=== PATIENT | male | born 1950 | race Caucasian/White ===

== ENCOUNTER 2018-02-04 09:46 | Observation (INO) | payer SELFPAY ==
[2018-02-04] VITALS (14 sets, daily range): BP systolic 90–111; BP diastolic 50–84; PULSE 53–153; RESP 12–21; TEMP 36.6–37.1; O2SAT 96–97; BMI 25.9; BMI 26.0; BMI 26.1
--- NOTE | 2018-02-04 09:53 | NURSING ---
NO OLD EKGS
[2018-02-04] MEDS: 0.9% Normal Saline 1,000 ML 150 ML IV (09:57)
[2018-02-04] MEDS: Aspirin 81 MG TAB.CHEW 324 MG PO (09:58)
[2018-02-04] MEDS: dilTIAZem 25 MG/5 ML Vial 20 MG IV BOLUS (09:58)
[2018-02-04 09:59] LABS: Absolute Lymphocyte Count 2.82 X10^3/ul (0.83-4.51); Absolute Neutrophil Count 6.4 X10^3/uL (2.0-7.7); Basophil# 0.01 X10^3/uL; Basophil% 0.1 % (0-1); Eosinophil# 0.09 X10^3/uL; Eosinophils% 0.9 % (0-5); Hematocrit 49.3 % (40-54); Hemoglobin 16.4 g/dl (13.0-16.5); Lymphocyte # 2.82 X10^3/ul (4.0); Lymphocyte % 27.4 % (19-41); Mean Corp Hgb Conc 33.3 g/gl (32-36); Mean Corpuscular Hgb 28.8 pg (27.0-32.0); Mean Corpuscular Volume 86.6 fL (80-94); Mean Platelet Vol. 9.7 fl (6.2-12.0); Monocyte# 0.94 X10^3/uL; Monocyte% 9.1 % (0-10); Neutrophil # 6.41 X10^3/uL (2.7-7.7); Neutrophil % 62.4 % (47-70); Platelet Count 187 K/mm3 (150-450); RBC Distribution Width CV 13.9 % (11.6-14.6); RBC Distribution Width SD 43.8 fl (35.1-43.9); Red Blood Count 5.69 M/mm3 (4.6-6.2); White Blood Count 10.3 K/mm3 (4.4-11.0)
[2018-02-04 10:00] LABS: POSITIVE COUNT NO; POSITIVE DIFFERENTIAL NO; POSITIVE MORPHOLOGY NO
--- NOTE | 2018-02-04 10:03 | ED.DCSUM_ITS ---
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 Reports that he has substernal chest pain that began 3 days ago. It is a constant pain that he describes as aching. It is 6 out of 10 with coughing. It is 1 out of 10 at rest. He denies any shortness of breath with exertion. However, he does report that if he stands up he is lightheaded. No syncope. No nausea or vomiting. There is associated diaphoresis. Patient reports that he had palpitations on and off yesterday that resolved. However, they returned at 730 this morning. Patient reports that he has a history of atrial fibrillation since having a bypass 1 year ago. He is not anticoagulated. Physical Examination: Vitals: 98.1, 106/84, 153, 21, 96% on room air which is not hypoxic. General: Well-nourished and well-developed. Head: Normocephalic atraumatic. Neck: Supple, no lymphadenopathy. No JVD. Nontender. Cardiovascular: Tachycardic regular rhythm. No murmurs. Respiratory: No respiratory distress. Clear to auscultation bilaterally. Abdominal: Soft, nontender, nondistended, normal bowel sounds. No guarding, rebound, or peritoneal signs. Back: Nontender. Extremities: Nontender, no edema. Skin: Normal color, no rash. Neurologic: Alert and oriented ?3. Cranial nerves II through XII are intact. Normal strength and sensation. Psych: Normal affect. Test Results: EKG is atrial flutter at [address] changes. There is no old EKG for comparison. Emergency Department Course and Treatment: Patient was given aspirin p.o. and Cardizem IV. His heart rate came down to the 1 teens. He is given 25 mg of Cardizem IV and his rate is now in the 70s. However, he is still in atrial flutter. Treatment Plan: The patient will be discussed with the hospitalist and admitted for further evaluation and treatment. Disposition: Admitted in improved condition. Impression: 1. Atrial flutter with RVR. 2. Critical care time 30 minutes. 3. Chronic renal insufficiency. This note was generated with Dragon dictation software. It may contain incorrect words, spelling, and punctuation that were not noted in review of the chart prior to signing ED Disposition - Plan for ED Patient: Chief Complaint: Chest Pain
[2018-02-04 10:16] LABS: Anion Gap 7 (5-15); BUN 20 mg/dL (7-18); Calcium,Total 9.3 mg/dL (8.5-10.1); Chloride 104 mmol/L (98-107); Creatinine, Serum 1.82 mg/dL (0.70-1.30); EST Glomerular Filtration Rate 40 mL/min (>60); Est Glom Filt Rate - Afr Amer 48 mL/min (>60); Estimated Creatinine Clearance 44.54 ml/min; Glucose 89 mg/dL (74-106); Potassium 4.4 mmol/L (3.5-5.1); Sodium Level 139 mmol/L (136-145)
[2018-02-04] MEDS: dilTIAZem 25 MG/5 ML Vial IV BOLUS (10:19)
--- NOTE | 2018-02-04 11:00 | PCM.HP.STD ---
Problem List (1) Chest pain Status: Acute Qualifiers: Chest pain type: unspecified Qualified Code(s): R07.9 - Chest pain, unspecified (2) Atrial flutter with rapid ventricular response Status: Acute (3) CKD (chronic kidney disease) stage 3, GFR 30-59 ml/min Status: Acute (4) CAD (coronary artery disease) Status: Chronic Qualifiers: Coronary Disease-Associated Artery/Lesion type: unspecified vessel or lesion type [place] vs. transplanted heart: unspecified whether [place] or transplanted heart Associated angina: angina presence unspecified Qualified Code(s): I25.10 - Atherosclerotic heart disease of [place] coronary artery without angina pectoris (5) S/P PTCA (percutaneous transluminal coronary angioplasty) Status: Chronic Comment: PCI x 6 (6) S/P CABG (coronary artery bypass graft) Status: Chronic Comment: CABG x 4 ~ 03/2017 [facility] (7) HLD (hyperlipidemia) Status: Chronic Qualifiers: Hyperlipidemia type: pure hypercholesterolemia Qualified Code(s): E78.00 - Pure hypercholesterolemia, unspecified; E78.0 - Pure hypercholesterolemia (8) HTN (hypertension) Status: Chronic Qualifiers: Hypertension type: essential hypertension Qualified Code(s): I10 - Essential (primary) hypertension History of Present Illness Date of Admission: 02/04/18 Chief Complaint: Chest Pain, Palpitations. The patient is a 68 y/o M w/ PMHx: HTN, HLD, CKD stage III (unclear exact baseline Cr), PAF (noted to have occurred following CABG), CAD s/p PCI x 6 and CABG x 4 most recently ~ 03/2017 at [facility] following w/ Dr. Barragan outpatient but from discussions with patient non-compliant with both office follow-up and medications who presents to the [facility] ED on 02/04/18 with history of ongoing intermittent palpitations as well as chest discomfort substernal with radiation toward the back, to be worse with exertion, more prominent on evening prior to day of presentation and continuing into the morning with no associated dyspnea, nausea, emesis or diaphoresis. Patient does admit that several months prior he did have sternal wound infection and did not seek medical attention but opened up his own sutures and on a daily basis would remove purulent material and noted that eventually healed. Upon ED presentation workup included T 98.1, heart rate 153, BP 106/84, respiratory rate 21, 96% on room air--> administered Cardizem 20 mg IV ?1 with improvement of rate to 110--> additional 25 mg IV ?1 Cardizem with improvement of rate into 70s, unremarkable CBC, BMP with BUN/creatinine 20/1.82, troponin 0 0.02, chest x-ray with no acute findings. Cardiology, Dr. Vivar consulted and records requested from [facility], pending. Past Medical History Past Medical History (Chronic Problems): Chronic Problems CAD (coronary artery disease) (Chronic) S/P PTCA (percutaneous transluminal coronary angioplasty) (Chronic) PCI x 6 S/P CABG (coronary artery bypass graft) (Chronic) CABG x 4 ~ 03/2017 [facility] HLD (hyperlipidemia) (Chronic) Chronic renal insufficiency (Chronic) HTN (hypertension) (Chronic) Allergies No Known Allergies Allergy (Verified 02/04/18 09:47) Home Medications: Ambulatory Orders Medication Instructions Recorded NK [NK] 02/04/18 Surgical History: - - CABG x 4, PCI x 6, Appendectomy, R Eye prosthetic following trauma in youth (7 years old). Psychiatric History: No pertinent psych hx Lives: With Family Smoking Status: Former smoker Tobacco Use: Non-smoker Alcohol: None Drugs: None - *Family History Maternal History Items: Heart Disease, Hypertension Paternal History Items: Heart Disease, Hypertension Review of Systems Constitutional: Reports: Malaise, Fatigue. Denies: Chills, Fever, Weight Change HEENT: Denies: Head Aches, Sinus Congestion, Sinus Drainage Cardiovascular: Reports: Chest Pain, Palpitations. Denies: Chest Pressure, Chest Tightness, Heaviness, Light Headedness, Orthopnea, Syncope Respiratory: Denies: Cough, Shortness of Breath, Shortness of breath at rest, Shortness of breath upon exertion, Sputum production Gastrointestinal: Denies: Abdominal Pain, Nausea, Vomiting Genitourinary: Denies: Dysuria Musculoskeletal: Reports: Back Pain. Denies: Joint Pain, Joint Tenderness Skin: Denies: Rash, Wounds Neurological: Denies: Numbness, Tingling, Focal weakness Psychiatric: Denies: Anxiety, Depression, Homicidal Ideations, Suicidal Ideations Hematologic/ Lymphatic: Denies: Easy Bruising, Easy Bleeding VTE Information - Inpt Only VTE Present on Admission: No VTE Mechan Device Prophylaxis: SCD's VTE Pharm Prophylaxis ordered?: Yes Patient Problems: Active and Suspected Problems Atrial flutter with rapid ventricular response (Acute) CKD (chronic kidney disease) stage 3, GFR 30-59 ml/min (Acute) Chest pain (Acute) Subjective: Seated upright in the bed, NAD, notes no current chest discomfort. Objective: Physical Examination: General: awake, alert, oriented x 3 and cooperative, seated upright in the bed in no apparent distress, no current chest pain complaint. Skin: normal color, turgor, no icterus, cyanosis. HEENT: AT/NC, EOM L intact, R eye prosthetic, MMM, no carotid bruits or JVD noted. Lungs: CTA bilaterally, moderate effort, mild decrease BL bases, no rales, ronchi or wheezing. Heart: Converted, currently regular rate and rhythm; no gallop, rub audible. Abdomen: soft, NTTP, ND, normal BS, no HSM. Extremities: no cyanosis, clubbing, or edema. Neurological: patient awake, alert, oriented x 3; cognitive function intact; pupils equally reactive to light and accomodation; cranial nerves grossly normal aside R eye prosthesis presence, moving all 4 extremities, no focal deficits, strength mildly globally decreased. Psychiatric: affect appears normal, no acute evidence of depressive or anxiety feelings. - Physical Exam Vital Signs Temp Pulse Resp BP Pulse Ox 98.1 F 107 H 12 111/61 96 02/04/18 09:48 02/04/18 10:17 02/04/18 10:17 02/04/18 10:17 02/04/18 10:17 Oxygen Flow Rate (L/min) 2 Oxygen Delivery Method Nasal Cannula Weight: 202 lb 9.677 oz Body Mass Index (BMI) 25.9 Laboratory Tests Past 24 Hrs 02/04/18 02/04/18 09:50 09:50 WBC 10.3 RBC 5.69 Hgb 16.4 Hct 49.3 MCV 86.6 MCH 28.8 MCHC 33.3 RDW 13.9 RDW Differential 43.8 Plt Count 187 MPV 9.7 Immature Gran % (Auto) 0.100 Neut % (Auto) 62.4 Lymph % (Auto) 27.4 [place] % (Auto) 9.1 Eos % (Auto) 0.9 Baso % (Auto) 0.1 Absolute Neuts (auto) 6.4 Absolute Lymphs (auto) 2.82 Total Counted Not Reportable Sodium 139 Potassium 4.4 Chloride 104 Carbon Dioxide 28.0 Anion Gap 7 BUN 20 H Creatinine 1.82 H Estim Creat Clear Calc 44.54 Est GFR (MDRD) Af Amer 48 L Est GFR (MDRD) Non-Af 40 L BUN/Creatinine Ratio 11.0 Glucose 89 Calcium 9.3 Troponin I 0.020 Assessment/Plan All Active Problems Atrial flutter with rapid ventricular response (Acute) CKD (chronic kidney disease) stage 3, GFR 30-59 ml/min (Acute) Chest pain (Acute) The patient is a 68 y/o M w/ PMHx: HTN, HLD, CKD stage III, PAF, CAD s/p PCI x 6 and CABG x ? 2-4 most recently ~ 03/2017 at [facility] following w/ Dr. Barragan outpatient but from discussions with patient non-compliant with both office follow-up and medications who presents to the [facility] ED on 02/04/18 with history of ongoing intermittent palpitations as well as chest discomfort substernal with radiation toward the back, to be worse with exertion, more prominent on evening prior to day of presentation and continuing into the morning. (1) Paroxsymal atrial flutter w/ RVR w/ Chest pain concurrently: EKG in ED w/ atrial flutter w/ RVR. Patient administered cardizem bolus x 2 in ED with improvement. Will admit to PCU, maintain on telemetry, obtain cardiac enzyme serial set, obtain magnesium level, obtain ECHO, obtain TSH level. CHADs scoring appropriate for anticoagulation start at this time however per discussion with cardiology will hold on start and also patient ONLY amenable to ASA, gently hydrate in case of cardiac catheterization needs. Continue amiodarone regimen 200 mg po TID per Cardiology preference, metoprolol. Will plan continued serial enzyme trending and if remains unremarkable will plan AM nuclear stress testing. If enzymes become elevated or stress testing notable will continue w/ cardiac catheterization. (2) CAD: s/p PCI x 6 and CABG x 4 03/2017 [place], poor historian to exact interventions, follows w/ Dr. Barrgaan, restart on asa (may need increased ASA as refusing anticoagulation), statin, BB. From patient description, notably post-CABG sternal infection remotely that he self-treated. Advised strongly to seek medical evaluation in these types of situations. (3) Hypertension: We will initiate metoprolol regimen given concurrent history and add additional regimen as needed. Currently BP low normal thus defer EFRAIN inhibitor addition. (4) Hyperlipidemia: Add high-dose statin therapy, FLP in a.m. (5) Chronic Kidney Disease Stage Suspected Stage III: Admission BUN/Cr 20.182, baseline renal function unknown but admits to chronic kidney disease, will gently hydrate in case of cardiac catheterization needs. Repeat BMP in AM. (6) Former Tobacco Use: Encourage continued tobacco cessation. (7) DVT Prophylaxis: SCDs, per discussion with Cardiology for possible cardiac catheterization will hold anticoagulation start; however, regardless patient refuses to start any anticoagulation and notes only being amenable to ASA therapy. Code Visit OBSV E&M: 83729 Initial observation care L3
--- NOTE | 2018-02-04 11:05 | NURSING ---
120 OBS ATRIAL FLUTTER WITH RVR WHITE
[2018-02-04] MEDS: 0.9% Normal Saline 1,000 ML 100 ML IV ×2 (13:02→22:12)
[2018-02-04] MEDS: Metoprolol Tartrate 50 MG Tablet PO ×2 (13:02→21:19)
[2018-02-04] MEDS: Rivaroxaban 15 MG Tablet PO (13:06)
[2018-02-04 14:09] LABS: Magnesium 2.2 mg/dL (1.6-2.6)
[2018-02-04] MEDS: Amiodarone 200 MG Tablet PO ×2 (15:02→21:19)
--- NOTE | 2018-02-04 15:11 | PCM.CONS.C ---
Problem List (1) Atrial flutter with rapid ventricular response Status: Acute (2) CAD (coronary artery disease) Status: Chronic (3) S/P PTCA (percutaneous transluminal coronary angioplasty) Status: Chronic (4) S/P CABG (coronary artery bypass graft) Status: Chronic (5) HLD (hyperlipidemia) Status: Chronic (6) Chronic renal insufficiency Status: Chronic Reason for Consult Date of Consultation: 02/04/18 History of Present Illness: The patient is a 68 year old white male with a past cardiovascular history which is included hyperlipidemia, CAD, status post TN, status post PCI, status post CABG, atrial fibrillation, who now presents for concerns of palpitations, chest discomfort, and findings compatible with atrial flutter with a rapid ventricular response. He states he has been followed through the [facility] system and underwent his invasive evaluation and care at the [facility]. He has been following with [facility] cardiology locally (Popeye Barragan MD). He states that he has been doing well overall and has been off of his medications since spending his winter months in [place]. He notes while there he had issues with his surgical incision healing and subsequently opened a portion of his incision himself with his own knife in order to drain out purulent material. He states this healed over time. He did not seek medical evaluation care during this time. He states he had been doing well until recently. He noted recently he was having palpitations. This was more prominent this morning. It was associated with chest/back discomfort. He did not sense a significant change with respect to his respiratory status nor did he have nausea or emesis. There was no obvious diaphoresis and he had no loss of consciousness. He elected to present to the emergency department for further evaluation. There he was found to be in atrial flutter with rapid ventricular response. An initial troponin I level was negative. He was treated with IV diltiazem and placed in the PCU for further evaluation care. He has subsequently been noted to have returned to sinus rhythm with underlying premature ectopy. He has denied any orthopnea or PND. He has had no peripheral pitting edema. He does not believe he is undergone any additional cardiovascular diagnostic testing or intervention recently. To the best of his knowledge he has never had any thromboembolic related events. [] Past Medical History Allergies/Adverse Reactions: Allergies No Known Allergies Allergy (Verified 02/04/18 09:47) Home Medications: Ambulatory Orders Medication Instructions Recorded NK [NK] 02/04/18 Past Medical History (Chronic Problems): Chronic Problems CAD (coronary artery disease) (Chronic) S/P PTCA (percutaneous transluminal coronary angioplasty) (Chronic) S/P CABG (coronary artery bypass graft) (Chronic) HLD (hyperlipidemia) (Chronic) Chronic renal insufficiency (Chronic) Surgical History: angioplasty, coronary bypass surgery Smoking Status: Former smoker Alcohol: None Drugs: None Review of Systems - Review of Systems General: Denies: Fever, Night Sweats, Fatigue Cardiovascular: Reports: Chest Discomfort, Palpitations. Denies: Shortness of Breath, Orthopnea, PND, Peripheral Edema, Lightheadedness, Dizziness, Near Syncope, Syncope Respiratory: Denies: Cough, Sputum Production, Hemoptysis Gastrointestinal: Denies: Hematemesis, Hematochezia, Melena Genitourinary: Denies: Dysuria, Hematuria Muscoloskeletal: Reports: Back Pain Skin: Denies: Rash Objective: Vital Signs Temp Pulse Resp BP Pulse Ox 98.7 F 58 L 16 93/50 L 97 02/04/18 15:03 02/04/18 15:03 02/04/18 15:03 02/04/18 15:03 02/04/18 15:03 Oxygen Delivery Method Room Air Weight: 203 lb 0.732 oz Body Mass Index (BMI) 26.0 Intake and Output for Last 24 Hours 02/02/18 02/03/18 02/04/18 23:59 23:59 23:59 Intake Total 240 / 240 Balance 240 / 240 02/04/18 12:35: Troponin I 0.026 Rhythm: Sinus rhythm EKG: Atrial flutter ECHO: 02/04/2018 Interpretation Summary The study was technically difficult. Left ventricular systolic function is normal. The estimated ejection fraction is 55 %. The left atrium is mildly enlarged. The right atrium is mildly enlarged. Mild diffuse mitral valve thickening. Trivial mitral valve insufficiency. Trivial tricuspid valve insufficiency. Trivial eccentric pulmonic valve insufficiency. Right ventricular systolic pressure estimated to be 35 mmHg. Transmitral diastolic flow velocities suggest diastolic dysfunction (pseudonormal pattern). CXR: Preliminary evaluation: Post open heart surgery changes: No acute cardiopulmonary changes noted Assessment/Plan 1. Atrial flutter with rapid ventricular response The patient has a history of atrial fibrillation. Today he presented with findings compatible atrial flutter with a rapid ventricular response. He was evaluated and treated by the [facility] emergency department staff with IV diltiazem. He has subsequently been noted to return to sinus rhythm. He states that he had been on medication before for his atrial fibrillation. This apparently was postoperative. He believes he was potentially at one time on metoprolol as well as sotalol. Again he has not been on any medications for quite some time. At the present time he will continue to be monitored. It would be reasonable to resume rate control therapy. He would also be reasonable to consider antiarrhythmic therapy. Based upon his underlying diagnosis, elevated and levels, it would be reasonable to consider agents such as amiodarone as he may not be an ideal today for agents such as flecainide (based on history of CAD/TN), sotalol or decrease in (based upon elevated creatinine level), etc. Also, it would be reasonable to consider him for anticoagulant therapy once his noninvasive evaluation is complete and is determined he does not require any further invasive evaluation or care. This could come in the form of Eliquis or rivaroxaban with renally adjusted doses, versus, depending upon expense to the patient, alternative agent such as warfarin. 2. CAD status post TN status post PCI status post CABG The details of the patient's underlying coronary status and previous percutaneous interventions and surgical based interventions are unavailable at this time for review. He is undergoing reevaluation based on his symptoms and findings for any obvious evidence of myocardial ischemia/injury. This includes cardiac enzyme levels with troponin I levels which are negative ?2. He will have follow-up ECG. His echocardiogram is already performed and is as noted above. It would be reasonable to consider him based upon his symptoms and his objective findings for reassessment of his coronary physiology with an exercise tolerance test/imaging study. Depending upon the findings he may or may not need repeat diagnostic cardiac catheterization. He should also continue medical management in the interim. This would include agents such as aspirin, nitrates as needed, beta-blockers, lipid-lowering agents, and other agents as deemed appropriate and tolerated. 3. Hyperlipidemia He reports a history of hyperlipidemia. However he reports not being on any lipid-lowering medication. His lipids can be assessed. Ideally he would be on a lipid-lowering therapy with a statin based upon his diagnosis, etc. 4. Chronic renal insufficiency The patient does have chronic renal insufficiency. This needs to be taken into consideration as he proceeds with medical therapy and further evaluation and care. Comment: The above was discussed and reviewed with the patient with his family members present. The above was also discussed and reviewed with Bianka Nicole MD of the [facility] hospitalist staff. This note was generated with [employer] software. It may contain incorrect words, spelling, and punctuation that were not noted in checking the note before signing.
[2018-02-04] MEDS: Atorvastatin Calcium 80 MG Tablet PO (21:18)
[2018-02-05 03:00] VITALS: BP 105/49; PULSE 47; RESP 16; TEMP 36.6; O2SAT 94
[2018-02-05 03:15] VITALS: PULSE 48
[2018-02-05 06:02] LABS: Absolute Lymphocyte Count 1.68 X10^3/ul (0.83-4.51); Absolute Neutrophil Count 3.1 X10^3/uL (2.0-7.7); Basophil# 0.01 X10^3/uL; Basophil% 0.2 % (0-1); Eosinophil# 0.18 X10^3/uL; Eosinophils% 3.2 % (0-5); Hematocrit 40.1 % (40-54); Hemoglobin 13.2 g/dl (13.0-16.5); Lymphocyte # 1.68 X10^3/ul (4.0); Lymphocyte % 29.7 % (19-41); Mean Corp Hgb Conc 32.9 g/gl (32-36); Mean Corpuscular Hgb 28.6 pg (27.0-32.0); Mean Corpuscular Volume 86.8 fL (80-94); Mean Platelet Vol. 9.8 fl (6.2-12.0); Monocyte# 0.71 X10^3/uL; Monocyte% 12.6 % (0-10); Neutrophil # 3.06 X10^3/uL (2.7-7.7); Neutrophil % 54.1 % (47-70); Platelet Count 169 K/mm3 (150-450); RBC Distribution Width CV 13.9 % (11.6-14.6); RBC Distribution Width SD 43.5 fl (35.1-43.9); Red Blood Count 4.62 M/mm3 (4.6-6.2); White Blood Count 5.7 K/mm3 (4.4-11.0)
[2018-02-05 06:06] LABS: POSITIVE COUNT NO; POSITIVE DIFFERENTIAL NO; POSITIVE MORPHOLOGY NO
[2018-02-05 06:09] VITALS: BP 104/63; PULSE 50; RESP 16; TEMP 36.6; O2SAT 95
[2018-02-05] MEDS: Amiodarone 200 MG Tablet PO (06:11)
[2018-02-05] MEDS: Aspirin 81 MG TAB.CHEW PO (06:11)
[2018-02-05 06:12] LABS: International Normalized Ratio 1.3; Prothrombin Time (Protime)PT. 16.1 SECONDS (11.7-14.9)
[2018-02-05 06:13] LABS: Partial Thromboplast Time 54.8 Seconds (24.1-36.2)
[2018-02-05 06:20] LABS: Anion Gap 9 (5-15); BUN 22 mg/dL (7-18); BUN/Creat Ratio 14.7 RATIO (10-20); Calcium,Total 8.2 mg/dL (8.5-10.1); Chloride 112 mmol/L (98-107); Cholesterol 211 mg/dL (200); EST Glomerular Filtration Rate 49 mL/min (>60); Est Glom Filt Rate - Afr Amer 60 mL/min (>60); Estimated Creatinine Clearance 54.04 ml/min; Glucose 88 mg/dL (74-106); High Density Lipoprotein 33 mg/dL; Potassium 4.4 mmol/L (3.5-5.1); Sodium Level 143 mmol/L (136-145); Triglycerides 80 mg/dL; Very Low Density Lipoprotein 16 mg/dL (5-40)
[2018-02-05 08:03] VITALS: PULSE 54
[2018-02-05 08:38] VITALS: BP 103/45; PULSE 49; RESP 16; TEMP 36.6; O2SAT 98
--- NOTE | 2018-02-05 09:40 | CASEMGMT ---
Patient is listed as self pay. SW spoke with patient and he said he utilizes a [employer]. He has to pay for his own medications. He said there are no financial concerns with paying for medications. SW available if needed. Nicole GUIDO MSW
--- NOTE | 2018-02-05 09:51 | PCM.PN.CARD ---
Subjectve: Patient states he is feeling better. He no longer senses palpitations or rapid rates. He is having no chest discomfort/back discomfort. He states he feels well enough to be released home for continued outpatient follow-up. Objective: Vital Signs Temp Pulse Resp BP Pulse Ox 97.9 F 49 L 16 103/45 L 98 02/05/18 08:38 02/05/18 08:38 02/05/18 08:38 02/05/18 08:38 02/05/18 08:38 Oxygen Delivery Method Room Air Weight: 203 lb 0.732 oz Body Mass Index (BMI) 26.0 Intake and Output for Last 24 Hours 02/03/18 02/04/18 02/05/18 23:59 23:59 23:59 Intake Total 1279 / 1279 1335 / 1335 Balance 1279 / 1279 1335 / 1335 General: Awake, Alert, Oriented x 3, Cooperative, No Acute Distress HEENT: Atraumatic, Normocephalic, PERRL, EOMI, Sclera Non Icteric Oral: Moist Mucosa Neck: Supple, Good ROM, No JVD Lungs: Clear to auscultation Cardiovascular: Regular Rhythm, Normal S1, Normal S2 Abdomen: Bowel Sounds Present, Soft, Non Tender Extremities: No Cyanosis, No Clubbing, No edema Neurological: No Focal Motor or Sensory Deficit Psych/Mental Status: Appropriate, Normal Affect 02/04/18 12:35: Troponin I 0.026 02/04/18 16:04: Troponin I 0.037 02/05/18 05:48: WBC 5.7, RBC 4.62, Hgb 13.2, Hct 40.1, MCV 86.8, MCH 28.6, MCHC 32.9, RDW 13.9, RDW Differential 43.5, Plt Count 169, MPV 9.8, Immature Gran % (Auto) 0.200, Neut % (Auto) 54.1, Lymph % (Auto) 29.7, [place] % (Auto) 12.6 H, Eos % (Auto) 3.2, Baso % (Auto) 0.2, Absolute Neuts (auto) 3.1, Total Counted Not Reportable 02/05/18 05:48: Sodium 143, Potassium 4.4, Chloride 112 H, Carbon Dioxide 22.0, Anion Gap 9, BUN 22 H, Creatinine 1.50 H, Est GFR (MDRD) Af Amer 60, Est GFR (MDRD) Non-Af 49 L, BUN/Creatinine Ratio 14.7, Glucose 88, Calcium 8.2 L, Triglycerides 80, Cholesterol 211 H, LDL Cholesterol 162 H, VLDL Cholesterol 16, HDL Cholesterol 33 L 02/05/18 05:48: PT 16.1 H, INR 1.3, APTT 54.8 H Rhythm: Sinus rhythm EKG: Sinus rhythm; no acute ECG changes ECHO: Please see official report Medical Necessity - Tobacco Use Smoking Status: Former smoker Tobacco Use: Non-smoker Assessment/Plan 1. Atrial flutter with rapid ventricular response The patient has a history of atrial fibrillation. Today he presented with findings compatible atrial flutter with a rapid ventricular response. He was evaluated and treated by the [facility] emergency department staff with IV diltiazem. He has subsequently been noted to return to sinus rhythm. He states that he had been on medication before for his atrial fibrillation. This apparently was postoperative. He believes he was potentially at one time on metoprolol as well as sotalol. Again he has not been on any medications for quite some time. It would be reasonable to resume rate control therapy. He would also be reasonable to consider antiarrhythmic therapy. Based upon his underlying diagnosis, elevated and levels, it would be reasonable to consider agents such as amiodarone as he may not be an ideal today for agents such as flecainide (based on history of CAD/MA), sotalol or decrease in (based upon elevated creatinine level), etc. Also, it would be reasonable to consider him for anticoagulant therapy once his noninvasive evaluation is complete and is determined he does not require any further invasive evaluation or care. This could come in the form of Eliquis or rivaroxaban with renally adjusted doses, versus, depending upon expense to the patient, alternative agent such as warfarin. 2. CAD status post MA status post PCI status post CABG The details of the patient's underlying coronary status and previous percutaneous interventions and surgical based interventions are unavailable at this time for review. He is undergoing reevaluation based on his symptoms and findings for any obvious evidence of myocardial ischemia/injury. This includes cardiac enzyme levels with troponin I levels which are negative ?2. His follow-up ECG demonstrates no new acute ECG changes. His echocardiogram is already performed and his overall LV systolic function remains preserved at this time. He was being considered for further evaluation of his coronary/graft physiology with an exercise tolerance test/stress nuclear imaging study. However secondary to technical issues were involving the nuclear imaging equipment this is unable to be performed at this time. So, based upon his echocardiographic imaging quality, he was not felt to be an ideal candidate for a stress echo type procedure. Thus this procedure may need to be followed up and completed by his primary horseradish maker as an outpatient. In the interim he will continue medical management. 3. Hyperlipidemia He reports a history of hyperlipidemia. However he reports not being on any lipid-lowering medication. His lipids remain elevated. He would be recommended for lipid-lowering therapy. 4. Chronic renal insufficiency The patient does have chronic renal insufficiency. This needs to be taken into consideration as he proceeds with medical therapy and further evaluation and care. Comment: The above was discussed and reviewed with the patient at great length. The above was also discussed with the [facility] staff. This note was generated with [employer] dictation software. It may contain incorrect words, spelling, and punctuation that were not noted in checking the note before signing.
--- NOTE | 2018-02-05 10:58 | PCM.DC ---
- Discharge Diagnoses Current Active Problems: Current Active and Chronic Problems Atrial flutter with rapid ventricular response (Acute) CAD (coronary artery disease) (Chronic) S/P PTCA (percutaneous transluminal coronary angioplasty) (Chronic) PCI x 6 S/P CABG (coronary artery bypass graft) (Chronic) CABG x 4 ~ 03/2017 [facility] HLD (hyperlipidemia) (Chronic) Chronic renal insufficiency (Chronic) CKD (chronic kidney disease) stage 3, GFR 30-59 ml/min (Acute) HTN (hypertension) (Chronic) Chest pain (Acute) You will use the following diet at home:: Cardiac Discharge Activity: Return to Normal Activity Call your doctor if you observe: Shortness of breath, Dizziness, Fainting spells, Chest pain Additional Instructions: Amiodarone dosing: Take 200 mg orally 3 times daily times 1 week then 200 mg orally twice daily times 2 weeks then 200 mg orally daily. Allergies/Adverse Reactions: Allergies No Known Allergies Allergy (Verified 02/04/18 09:47) Medications to take at Discharge Amiodarone HCl [Cordarone] 200 mg PO DAILY #90 tab 02/05/18 Aspirin [Aspirin, Baby] 81 mg PO DAILY@0800 #30 tab.chew 02/05/18 Atorvastatin Calcium 40 mg PO DAILY #30 tab 02/05/18 Metoprolol Tartrate [Lopressor (beta brown)] 25 mg PO BID #60 tab 02/05/18 Rivaroxaban [Xarelto] 15 mg PO DAILY@1700 #30 tab 02/05/18 The following prescriptions were given: Amiodarone HCl [Cordarone] 200 mg PO DAILY #90 tab Aspirin [Aspirin, Baby] 81 mg PO DAILY@0800 #30 tab.chew Atorvastatin Calcium 40 mg PO DAILY #30 tab Rivaroxaban [Xarelto] 15 mg PO DAILY@1700 #30 tab Metoprolol Tartrate [Lopressor (beta brown)] 25 mg PO BID #60 tab Primary Care Physician: Rock Hancock MD [Primary Care Provider] - Please follow up with your Primary Care Physician in: 1 Week Test Results: Test results from this visit will be discussed in further detail at your follow-up appointment, if applicable. Please Follow Up With: Popeye Barragan MD When: Call for appointment within one week Proposed Discharge Date: 02/05/18
--- NOTE | 2018-02-05 11:01 | PCM.DC.SUM ---
<Karo Leal - Last Filed: 02/05/18 11:17> Discharge Date and Diagnosis Date of Admission: 02/04/18 Date of Discharge: 02/05/18 - Primary Discharge Diagnosis Active and Suspected Problems 1. Atrial flutter with rapid ventricular response 2. Chest pain 3. CAD status post PCI x6 and CABG x4 4. Hypertension 5. Hyperlipidemia 6. Chronic kidney disease stage III 7. Former tobacco use - Secondary Discharge Diagnosis Chronic Problems CAD (coronary artery disease) (Chronic) S/P PTCA (percutaneous transluminal coronary angioplasty) (Chronic) PCI x 6 S/P CABG (coronary artery bypass graft) (Chronic) CABG x 4 ~ 03/[address] [facility] HLD (hyperlipidemia) (Chronic) Chronic renal insufficiency (Chronic) HTN (hypertension) (Chronic) Hospital Course and Treatment Imaging Results: Diagnostic Data Chest X-Ray 02/04/18 09:49 IMPRESSION: No acute abnormality is seen. Electronically Signed: Greg Isbell MD at 10:17 EDT Tel [phone], Service support , Dr. Vivar- Cardiology Operations: None Procedures: 2-D Echocardiogram Summary of Care Provided: The patient is a 68 year old M admitted 02/04/18 due to chest pain, palpitations. He has a past medical history of hypertension, hyperlipidemia, chronic kidney disease stage III, paroxysmal atrial fibrillation, CAD status post PCI x6 and CABG x4 most recently March 2017 at [facility]. Follows as outpatient with Dr. Kaplan, [facility] cardiology. Dr. Vivar consulted for cardiology during admission. Troponin negative. Patient noted to be atrial flutter with RVR on admission. He did convert to sinus rhythm. Patient was started on amiodarone and will take 200 mg 3 times daily for 1 week followed by 200 mg twice daily for 2 weeks and then 200 mg daily. He was also started on metoprolol 25 mg twice daily, Xarelto 15 mg daily and aspirin 81 mg daily. Atorvastatin 40 mg daily added for hyperlipidemia. EKG without evidence of ST-T changes. Echocardiogram demonstrated an EF of 55%, RVSP estimated to be 35 mmHg. There was not noted to be in any obvious evidence of ischemia. Patient denies further chest pain or palpitations. Patient will follow up with Dr. Kaplan, primary boiler engineer as outpatient within 1 week for further discussion on outpatient stress test. Follow-up with primary care physician in 1 week. Physical Examination: General: awake, alert, oriented x 3 and cooperative Skin: normal color, turgor, no icterus, cyanosis. Lungs: Clear to auscultation, normal air movement Heart: regular rate and rhythm; no gallop, rub audible. Abdomen: Soft, nontender, normal bowel sounds Extremities: no cyanosis, clubbing, or edema. Neurological: Neuro grossly intact Psychiatric: affect appears normal Patient seen exam prior to discharge. Physical assessment as noted above. Patient stable for discharge home with further follow-up with primary care physician and cardiology as noted above. This patient was seen by JANENE Stoner under the supervision of Dr. Cristina. Discharge Activity: Return to Normal Activity Call your doctor if you observe: Shortness of breath, Dizziness, Fainting spells, Chest pain Home Medications: Medications to take at Discharge Amiodarone HCl [Cordarone] 200 mg PO DAILY #90 tab 02/05/18 Aspirin [Aspirin, Baby] 81 mg PO DAILY@0800 #30 tab.chew 02/05/18 Atorvastatin Calcium 40 mg PO DAILY #30 tab 02/05/18 Metoprolol Tartrate [Lopressor (beta brown)] 25 mg PO BID #60 tab 02/05/18 Rivaroxaban [Xarelto] 15 mg PO DAILY@1700 #30 tab 02/05/18 Following Prescrptions Were Given to Patient: Amiodarone HCl [Cordarone] 200 mg PO DAILY #90 tab Aspirin [Aspirin, Baby] 81 mg PO DAILY@0800 #30 tab.chew Atorvastatin Calcium 40 mg PO DAILY #30 tab Rivaroxaban [Xarelto] 15 mg PO DAILY@1700 #30 tab Metoprolol Tartrate [Lopressor (beta brown)] 25 mg PO BID #60 tab Primary Care Physician: Rock Hancock MD [Primary Care Provider] - Please follow up with your Primary Care Physician in: 1 Week Please Follow Up With: Popeye Barragan MD When: Call for appointment within one week Disposition: Home Minutes spent on discharge:: 35 Patient Condition:: Stable Medical Necessity - Tobacco Use Smoking Status: Former smoker Tobacco Use: Non-smoker Meaningful Use Info Meaningful Use Diagnoses (Choose all that apply): None applicable <Dayami Cristina E - Last Filed: 02/05/18 14:20> Discharge Date and Diagnosis - Secondary Discharge Diagnosis Chronic Problems CAD (coronary artery disease) (Chronic) S/P PTCA (percutaneous transluminal coronary angioplasty) (Chronic) PCI x 6 S/P CABG (coronary artery bypass graft) (Chronic) CABG x 4 ~ 03/[address] [facility] HLD (hyperlipidemia) (Chronic) Chronic renal insufficiency (Chronic) HTN (hypertension) (Chronic) Hospital Course and Treatment Summary of Care Provided: Hospitalist note: Discharge summary above reviewed as well as physical examination and I agree with above discharge plan. Patient was admitted because of chest pain palpitation. He was found to have atrial flutter with RVR. His EKG revealed atrial flutter with RVR but without evidence of acute ischemic changes. His troponin was negative. He was given 1 dose of IV Cardizem bolus and he converted back to sinus rhythm. He was started on amiodarone and metoprolol for rate control as well as Xarelto for anti-fibrillation. 2D echocardiogram revealed ejection fraction 55%, RVSP of 35 and no significant valvular heart disease. After patient converted back to sinus rhythm, he remained in sinus rhythm with stable heart rate as well as blood pressure. Patient did well on amiodarone and metoprolol. Patient discharged home in a stable medical condition, discharged on amiodarone and metoprolol for rate control, discharged on Xarelto for anticoagulation, continued on aspirin and statins, recommended follow-up with PCP in 1 week and follow-up with cardiology in 1 week as well. - Physical Exam General: Alert, Oriented x3, Cooperative, No apparent distress. HEENT: Atraumatic, PERRLA, EOMI. Neck: Supple, No JVD, Negative Carotid Bruits, Trachea Midline, Thyroid Normal. Lungs: Clear to auscultation, Normal air movement, No rhonchi, No wheeze, No rales. Cardiovascular: Regular rate, Regular Rhythm, Normal S1, Normal S2, PMI Normal. Abdomen: Bowel Sounds Present, Soft, Non Tender, Non-Distended, No Hepato-splenomegaly. Extremities: No clubbing, No cyanosis, No edema Skin: No rashes, No breakdown Neurological: Neuro grossly intact Vital Signs are stable. This note was generated with [employer] software. It may contain incorrect words, spelling, and punctuation that were not noted in checking the note before signing. Minutes spent on discharge:: 27 Patient Condition:: Stable Meaningful Use Info Meaningful Use Diagnoses (Choose all that apply): None applicable Code Visit OBSV E&M: 84534 Observation care discharge
[2018-02-05 11:24] VITALS: PULSE 59
[2018-02-05] MEDS: Metoprolol Tartrate 25 MG Tablet PO (11:24)
--- NOTE | 2018-02-05 11:40 | CASEMGMT ---
PERRY PÉREZ NOTE: Xarelto has been e-scripted to [facility] [place] pharmacy. Pt's cost will be $450.03/month supply. Pt given Xarelto 30-day free supply card and instructed pt to give to his pharmacy when he picks up his medication. Pt made aware of cost of Xarelto after 30-day supply. Pt voiced is not willing to pay that amt after the 30-day free supply. Advised pt to discuss options of cheaper alternative medication @ his appt with Dr Barragan. Taylor SAMS RN CM
== END 2018-02-05 10:59 | disposition home or self-care (01) ==
LOC: ED 10:39 → PCU 02-05 07:14
PROVIDERS: Admitting Provider Family Medicine; Emergency Provider Emergency Medicine; PCP Family Medicine; Visit Provider Hospitalist
DX: R07.89 Other chest pain (principal); I48.92 Unspecified atrial flutter; I12.9 Hypertensive chronic kidney disease with stage 1 through stage 4 chronic kidney disease, or unspecified chronic kidney disease; N18.3 Chronic kidney disease, stage 3 (moderate); I25.10 Atherosclerotic heart disease of native coronary artery without angina pectoris; E78.5 Hyperlipidemia, unspecified; I48.0 Paroxysmal atrial fibrillation; Z91.14 Patient's other noncompliance with medication regimen; Z95.1 Presence of aortocoronary bypass graft; Z91.19 Patient's noncompliance with other medical treatment and regimen; Z87.891 Personal history of nicotine dependence
CPT/HCPCS: 36415; 71045; 80048; 80061; 83735; 84443; 84484; 85025; 85610; 85730; 93005; 93306; 96361; 96374; 96376; 99218; 99283; J7030; A4216; G0378